=== PATIENT | female | born 1955 | race Caucasian/White ===

== ENCOUNTER 2020-11-10 17:38 | Day surgery (SDCO) | payer OTHER ==
[~2020-11-10 17:38] MED LIST: ALLEGRA ALLERG180 MG PO; CALTRATE 600 +1 EACH PO; CENTRUM WOMEN1 EACH PO; DICYCLOMINE HCL20 MG PO; KLOR-CON M 1010 MEQ PO; LASIX20 MG PO; MOBIC7.5 MG PO; PRINIVIL20 MG PO; PROTONIX40 MG PO; VAGIFEM10 MCG VG; VITAMIN C1000 MG PO; VITAMIN D350000 UNIT PO; VITAMIN E400 UNI1 PO; ZOCOR40 MG PO
[2020-11-10 18:43] LABS: BASOPHIL 0.4 % (0-2); EOSINOPHIL 0.6 % (0-5); HCT 45.6 % (37.0-47.0); HGB 15.2 g/dl (12.5-16.0); LYMPHOCYTE 8.1 % (15-48); MCH 28.7 pg (25.0-31.0); MCHC 33.3 g/dL (32.0-36.0); MONOCYTE 8.8 % (0-12); MPV 10.5 fL (6.0-9.5); NEUTROPHIL 81.5 % (41-80); NRBC 0; PLT 336 K/uL (150-400); RDW 13.4 % (11.5-14.0); WBC 22.4 K/uL (4.0-10.5)
[2020-11-10 18:44] LABS: BILIRUBIN NEGATIVE (NEGATIVE); BLOOD NEGATIVE Ery/uL (NEGATIVE); CLARITY HAZY (CLEAR); COLOR YELLOW (YELLOW); GLUCOSE (U) NORMAL (NORMAL); LEUKOCYTES NEGATIVE Leu/uL (NEGATIVE); NITRITE NEGATIVE (NEGATIVE); PROTEIN NEGATIVE (NEGATIVE); SPECIFIC GRAVITY 1.025 (1.001-1.030); UROBILINOGEN 0.2 mg/dL (0.2-1.0)
[2020-11-10 18:56] LABS: ALBUMIN 3.9 g/dL (3.4-5.0); BILIRUBIN - TOTAL 0.4 mg/dL (0.2-1.0); BUN/CREAT RATIO (CALC) 28.4 RATIO; CREATININE 1.02 mg/dL (0.51-0.95); GLOBULIN (CALCULATION) 3.4 g/dL; POTASSIUM 3.5 mmol/L (3.5-5.1); TOTAL PROTEIN 7.3 g/dL (6.4-8.2)
[2020-11-11 06:54] LABS: BASOPHIL 0.2 % (0-2); EOSINOPHIL 1.2 % (0-5); HCT 36.4 % (37.0-47.0); HGB 12.2 g/dl (12.5-16.0); LYMPHOCYTE 15.8 % (15-48); MCH 28.7 pg (25.0-31.0); MCHC 33.5 g/dL (32.0-36.0); MCV 85.6 fL (78.0-100.0); MONOCYTE 9.1 % (0-12); NEUTROPHIL 73.2 % (41-80); NRBC 0; PLT 222 K/uL (150-400); RBC 4.25 M/uL (4.20-5.40); RDW 13.6 % (11.5-14.0); WBC 13.7 K/uL (4.0-10.5)
[2020-11-11 07:10] LABS: ALBUMIN 2.9 g/dL (3.4-5.0); BILIRUBIN - TOTAL 0.6 mg/dL (0.2-1.0); CREATININE 0.6 mg/dL (0.51-0.95); GLOBULIN (CALCULATION) 2.8 g/dL; PHOSPHORUS 3.3 mg/dL (2.6-4.7); POTASSIUM 3.5 mmol/L (3.5-5.1); TOTAL PROTEIN 5.7 g/dL (6.4-8.2)
[2020-11-12 09:33] LABS: BILIRUBIN - DIRECT 0.2 mg/dL (0.00-0.20); BILIRUBIN - TOTAL 0.9 mg/dL (0.2-1.0); BUN/CREAT RATIO (CALC) 19.2 RATIO; CREATININE 0.73 mg/dL (0.51-0.95); GLOBULIN (CALCULATION) 2.6 g/dL; POTASSIUM 3.6 mmol/L (3.5-5.1); TOTAL PROTEIN 5.6 g/dL (6.4-8.2)
[2020-11-15] MEDS ORDERED: MELOXICAM7.5 MG PO (16:43)
[2020-11-15] MEDS ORDERED: VITAMIN D31250 MC1 PO (16:44)
[2020-11-18] MEDS ORDERED: PERCOCET 5-3251 EACH PO (09:31)
== END 2020-11-12 14:43 | disposition home or self-care (01) ==
LOC: FER 17:38 → FMS 22:06
PROVIDERS: Emergency Medicine; Nurse Practitioner; Surgery; ADMIT Internal Medicine
DX: R10.11 Right upper quadrant pain (principal); M54.9 Dorsalgia, unspecified; D72.829 Elevated white blood cell count, unspecified; I87.2 Venous insufficiency (chronic) (peripheral); I11.9 Hypertensive heart disease without heart failure; E78.5 Hyperlipidemia, unspecified; M19.90 Unspecified osteoarthritis, unspecified site; K21.9 Gastro-esophageal reflux disease without esophagitis; E55.9 Vitamin D deficiency, unspecified; Z79.1 Long term (current) use of non-steroidal anti-inflammatories (NSAID); Z79.899 Other long term (current) drug therapy; Z20.822 Contact with and (suspected) exposure to COVID-19
CPT/HCPCS: 36415; 76705; 78227; 80053; 81003; 82150; 82248; 83605; 83690; 83735; 84100; 85025; 87040; 93005; 94010; A9537; C9113; G0378; J1170; J1650; J2405; J2543; J2805; J7030; Q9967; U0002

== ENCOUNTER → 2020-11-18 | Day surgery (SDC) | payer OTHER ==
[~2020-11-18] MED LIST changes: +MELOXICAM7.5 MG PO; +PERCOCET 5-3251 EACH PO; +VITAMIN D31250 MC1 PO
[2020-11-18 08:03] LABS: BUN/CREAT RATIO (CALC) 18.8 RATIO; CREATININE 0.64 mg/dL (0.51-0.95); POTASSIUM 3.9 mmol/L (3.5-5.1)
== END | disposition home or self-care (01) ==
LOC: FAS 07:09
PROVIDERS: Anesthesiology
DX: K81.1 Chronic cholecystitis (principal); E78.5 Hyperlipidemia, unspecified; I10 Essential (primary) hypertension; K58.9 Irritable bowel syndrome, unspecified; K21.9 Gastro-esophageal reflux disease without esophagitis; Z20.822 Contact with and (suspected) exposure to COVID-19
CPT/HCPCS: 36415; 80048; J0295; J1100; J1170; J2250; J2405; J2704; J2710; J3010; J7120; U0002